=== PATIENT | male | born 1975 | race Caucasian/White ===

== ENCOUNTER → 2024-09-12 11:49 | Outpatient (REF) | payer BC, SELFPAY | LOC: HWRAD 11:49 | PROVIDERS: ATTENDING PHYSICIAN Internal Medicine Critical Care Medicine; FAMILY PHYSICIAN Family Medicine | DX: J45.991 Cough variant asthma (principal) | CPT/HCPCS: 71046 ==

== ENCOUNTER → 2024-09-29 15:40 | Outpatient (REF) | payer BC, SELFPAY | LOC: HWRCS 15:40 | PROVIDERS: ATTENDING PHYSICIAN Internal Medicine Critical Care Medicine; FAMILY PHYSICIAN Family Medicine | DX: I51.7 Cardiomegaly (principal); R06.09 Other forms of dyspnea | CPT/HCPCS: 93306 ==

== ENCOUNTER → 2024-11-17 13:47 | Outpatient (REF) | payer BC, SELFPAY | LOC: HWRAD 13:47 | PROVIDERS: ATTENDING PHYSICIAN Internal Medicine Critical Care Medicine; FAMILY PHYSICIAN Family Medicine | DX: R05.3 Chronic cough (principal); J98.4 Other disorders of lung | CPT/HCPCS: 71250 ==

== ENCOUNTER 2024-12-04 06:26 | Day surgery (SDC) | payer BC, SELFPAY ==
[2024-12-04 11:15] VITALS: BP 117/77; BMI 35.3
[2024-12-04 11:26] VITALS: BMI 35.3
[2024-12-04 14:19] VITALS: BP 96/65
[2024-12-04 14:30] VITALS: BP 91/76
[2024-12-04 14:46] VITALS: BP 100/75
== END 2024-12-04 15:00 | disposition home or self-care (01) ==
LOC: SDS 06:26
PROVIDERS: ATTENDING PHYSICIAN Internal Medicine Gastroenterology
DX: K86.89 Other specified diseases of pancreas (principal); K86.9 Disease of pancreas, unspecified; K86.2 Cyst of pancreas; R93.89 Abnormal findings on diagnostic imaging of other specified body structures
CPT/HCPCS: 43238

== ENCOUNTER → 2025-02-23 14:20 | Outpatient (REF) | payer BC, SELFPAY | LOC: DHSLP 14:20 | PROVIDERS: ATTENDING PHYSICIAN Internal Medicine Critical Care Medicine; FAMILY PHYSICIAN Family Medicine | DX: G47.30 Sleep apnea, unspecified (principal); R06.83 Snoring | CPT/HCPCS: 95800 ==